=== PATIENT | female | born 1970 | race Caucasian/White ===

== ENCOUNTER 2017-06-18 10:21 | Day surgery (SDC) | payer OTHER ==
[2017-06-18] MEDS ORDERED: D5 LR 1000 ML 1,000 ML IV ONE (10:33)
[2017-06-18] MEDS ORDERED: DIPRIVAN VIAL 10 ML ONE ×2 (11:54)
[2017-06-18 13:36] VITALS: BP 105/72
== END 2017-06-18 12:35 | disposition home or self-care (01) ==
LOC: SURG1 10:21
PROVIDERS: ATTEND Internal Medicine Gastroenterology
PROC: 0DJD8ZZ Inspection of Lower Intestinal Tract, Via Natural or Artificial Opening Endoscopic (ICD-10-PCS; principal; 2017-06-18 15:30)
DX: K92.1 Melena (principal); R10.32 Left lower quadrant pain; Z80.0 Family history of malignant neoplasm of digestive organs; K57.30 Diverticulosis of large intestine without perforation or abscess without bleeding; K64.0 First degree hemorrhoids
CPT/HCPCS: A4217; J3490; J7120